=== PATIENT | male | born 1935 | race Caucasian/White ===

== ENCOUNTER 2022-04-11 04:23 | Day surgery (SDC) | payer OTHER ==
[2022-04-11] MEDS ORDERED: TOBRAMYCIN/DEXAMETHASONE OPHTH. OINTMENT 1 TUBE ONE (07:22)
[2022-04-11] MEDS ORDERED: BUPIVACAINE HCL/PF 0.75% 10 ML VIAL ONE (07:22)
[2022-04-11] MEDS ORDERED: LIDOCAINE HCL/PF 2% SDV 5ML VIAL ONE (07:22)
[2022-04-11] MEDS ORDERED: TRYPAN BLUE 0.5 ML DISP.SYRIN ONE (07:23)
[2022-04-11] MEDS ORDERED: LIDOCAINE HCL/PF 1% SDV 5ML VIAL ONE (07:23)
[2022-04-11] MEDS ORDERED: POVIDONE-IODINE 5% OPHTHALMIC PREP 30 ML SOLUTION ONE (07:23)
[2022-04-11] MEDS ORDERED: DICLOFENAC SODIUM 0.1% OPHTHALMIC 2.5ML BOTTLE OP SCH (07:30)
[2022-04-11] MEDS ORDERED: ACETAMINOPHEN 325 MG TABLET (FP) PO PRN (07:30)
[2022-04-11] MEDS ORDERED: CIPROFLOXACIN 0.3% EYE DROPS 5 ML BOTTLE ONE (09:53)
[2022-04-11] MEDS ORDERED: DICLOFENAC SODIUM 0.1% OPHTHALMIC 2.5ML BOTTLE ONE (09:53)
[2022-04-11] MEDS ORDERED: TROPICAMIDE 1% OPHTH SOLN 15 ML BOTTLE ONE (09:53)
[2022-04-11] MEDS ORDERED: PHENYLEPHRINE 2.5% OPTHALMIC DROP BOTTLE ONE (09:54)
[2022-04-11] MEDS: TROPICAMIDE 1% OPHTH SOLN 15 ML BOTTLE OP SCH ×3 (09:55→10:05)
[2022-04-11] MEDS: CIPROFLOXACIN HCL 0.3% OPHTH 2.5ML BOTTLE OP SCH ×3 (09:55→10:05)
[2022-04-11] MEDS: PHENYLEPHRINE 2.5% OPHTH SOLN 15 ML BOTTLE OP SCH ×3 (09:55→10:05)
[2022-04-11] MEDS ORDERED: TETRACAINE 0.5% OPHTH SOLN 2 ML BOTTLE OS ONE (12:13)
[2022-04-11] MEDS ORDERED: MIDAZOLAM HCL 2 MG/2 ML SINGLE DOSE VIAL ONE (12:14)
[2022-04-11] MEDS ORDERED: POVIDONE-IODINE 5% OPHTHALMIC PREP 30 ML SOLUTION OS ONE (12:16)
[2022-04-11] MEDS ORDERED: BSS (NA/CA/MG/K) BALANCED SALT SOLUTION OPHTH SOLN 15 ML BOTTLE IO ONE (12:21)
[2022-04-11] MEDS ORDERED: EPINEPHrine/PF 1 MG/1 ML (1:1,000) AMPULE ONE (12:21)
[2022-04-11] MEDS ORDERED: LIDOCAINE HCL 1% PRESERVATIVE FREE - 30ML VIAL IO ONE (12:23)
[2022-04-11] MEDS ORDERED: CHONDROITIN SU A/HYALUR SOD 1 KIT IO ONE (12:24)
[2022-04-11] MEDS ORDERED: EPINEPHrine 1:10,000 (P-F SYR) 1 MG/10 ML DISP.SYRIN IO ONE (12:24)
[2022-04-11] MEDS ORDERED: EPINEPHrine/PF 1 MG/1 ML (1:1,000) AMPULE SQ ONE (12:30)
[2022-04-11 14:09] VITALS: BP 106/70; PULSE 63; TEMP 98.7
== END 2022-04-11 13:55 | disposition home or self-care (01) ==
LOC: JASU-SURG 04:23
PROVIDERS: ATTEND Ophthalmology
PROC: 08RK3JZ Replacement of Left Lens with Synthetic Substitute, Percutaneous Approach (ICD-10-PCS; principal; 2022-04-11 11:30)
DX: H26.9 Unspecified cataract (principal)

== ENCOUNTER 2022-05-23 03:50 | Day surgery (SDC) | payer OTHER ==
[~2022-05-23 03:50] MED LIST: BSS (NA/CA/MG/K) BALANCED SALT SOLUTION OPHTH SOLN 15 ML BOTTLE IO ONE; POVIDONE-IODINE 5% OPHTHALMIC PREP 30 ML SOLUTION OD ONE; TETRACAINE 0.5% OPHTH SOLN 2 ML BOTTLE OD ONE; TOBRAMYCIN/DEXAMETHASONE OPHTH. OINTMENT 1 TUBE OD ONE
[2022-05-23] MEDS ORDERED: CIPROFLOXACIN 0.3% EYE DROPS 5 ML BOTTLE ONE (07:00)
[2022-05-23] MEDS ORDERED: DICLOFENAC SODIUM 0.1% OPHTHALMIC 2.5ML BOTTLE ONE (07:00)
[2022-05-23] MEDS ORDERED: PHENYLEPHRINE 2.5% OPTHALMIC DROP BOTTLE ONE (07:00)
[2022-05-23] MEDS ORDERED: TROPICAMIDE 1% OPHTH SOLN 15 ML BOTTLE ONE (07:00)
[2022-05-23] MEDS ORDERED: PHENYLEPHRINE 2.5% OPHTH SOLN 15 ML BOTTLE OD ONE ×2 (07:07→07:12)
[2022-05-23] MEDS ORDERED: CIPROFLOXACIN 0.3% EYE DROPS 5 ML BOTTLE OD ONE ×3 (07:07→07:17)
[2022-05-23] MEDS ORDERED: DICLOFENAC SODIUM 0.1% OPHTHALMIC 2.5ML BOTTLE OD ONE ×3 (07:07→07:17)
[2022-05-23] MEDS ORDERED: TROPICAMIDE 1% OPHTH SOLN 15 ML BOTTLE OD ONE ×3 (07:07→07:17)
[2022-05-23] MEDS ORDERED: BSS (NA/CA/MG/K) BALANCED SALT SOLUTION OPHTH SOLN 15 ML BOTTLE ONE (07:16)
[2022-05-23] MEDS ORDERED: POVIDONE-IODINE 5% OPHTHALMIC PREP 30 ML SOLUTION ONE (07:16)
[2022-05-23] MEDS ORDERED: EPINEPHrine/PF 1 MG/1 ML (1:1,000) AMPULE ONE ×2 (07:16→08:41)
[2022-05-23] MEDS ORDERED: TETRACAINE 0.5% OPHTH SOLN 2 ML BOTTLE ONE (07:16)
[2022-05-23] MEDS ORDERED: TOBRAMYCIN/DEXAMETHASONE OPHTH. OINTMENT 1 TUBE ONE (07:16)
[2022-05-23] MEDS ORDERED: LIDOCAINE HCL/PF 1% SDV 5ML VIAL ONE (07:16)
[2022-05-23] MEDS ORDERED: PHENYLEPHRINE 2.5% OPTHALMIC DROP BOTTLE OD ONE (07:17)
[2022-05-23] MEDS ORDERED: ACETAMINOPHEN 325 MG TABLET (FP) PO PRN (07:28)
[2022-05-23] MEDS ORDERED: TROPICAMIDE 1% OPHTH SOLN 15 ML BOTTLE OP SCH (07:30)
[2022-05-23] MEDS ORDERED: PHENYLEPHRINE 2.5% OPHTH SOLN 15 ML BOTTLE OP SCH (07:30)
[2022-05-23] MEDS ORDERED: CIPROFLOXACIN HCL 0.3% OPHTH 2.5ML BOTTLE OP SCH (07:30)
[2022-05-23] MEDS ORDERED: DICLOFENAC SODIUM 0.1% OPHTHALMIC 2.5ML BOTTLE OP SCH (07:30)
[2022-05-23] MEDS ORDERED: MIDAZOLAM HCL 2 MG/2 ML SINGLE DOSE VIAL ONE (08:23)
[2022-05-23] MEDS ORDERED: TETRACAINE 0.5% OPHTH SOLN 2 ML BOTTLE TP ONE (08:33)
[2022-05-23] MEDS ORDERED: TETRACAINE 0.5% OPHTH SOLN 2 ML BOTTLE OD ONE ×2 (08:33)
[2022-05-23] MEDS ORDERED: POVIDONE-IODINE 5% OPHTHALMIC PREP 30 ML SOLUTION OD ONE ×2 (08:34)
[2022-05-23] MEDS ORDERED: BSS (NA/CA/MG/K) BALANCED SALT SOLUTION OPHTH SOLN 15 ML BOTTLE IO ONE (08:41)
[2022-05-23] MEDS ORDERED: BSS (NA/CA/MG/K) BALANCED SALT SOLUTION OPHTH SOLN 15 ML BOTTLE OD ONE (08:41)
[2022-05-23] MEDS ORDERED: CHONDROITIN SU A/HYALUR SOD 1 KIT IO ONE (08:42)
[2022-05-23] MEDS ORDERED: LIDOCAINE HCL 1% PRESERVATIVE FREE - 30ML VIAL IO ONE ×2 (08:42)
[2022-05-23] MEDS ORDERED: EPINEPHrine/PF 1 MG/1 ML (1:1,000) AMPULE SQ ONE ×2 (08:43→08:49)
[2022-05-23] MEDS ORDERED: TOBRAMYCIN/DEXAMETHASONE OPHTH. OINTMENT 1 TUBE TP ONE (09:02)
[2022-05-23] MEDS ORDERED: TOBRAMYCIN/DEXAMETHASONE OPHTH. OINTMENT 1 TUBE OD ONE (09:02)
[2022-05-23 09:24] VITALS: BP 133/65; PULSE 84; RESP 18; TEMP 97.7
== END 2022-05-23 09:57 | disposition home or self-care (01) ==
LOC: JASU-SURG 03:50
PROVIDERS: ATTEND Ophthalmology
PROC: 08RJ3JZ Replacement of Right Lens with Synthetic Substitute, Percutaneous Approach (ICD-10-PCS; principal; 2022-05-23 08:30)
DX: H25.11 Age-related nuclear cataract, right eye (principal)

== ENCOUNTER 2022-10-03 02:06 | Emergency (ER) | payer OTHER ==
[2022-10-03] MEDS ORDERED: ASPIRIN 325 MG TABLET PO ONE (02:45)
[2022-10-03] MEDS ORDERED: ACETAMINOPHEN 1000 MG/100 ML BAG IVPB ONE (02:45)
[2022-10-03] MEDS ORDERED: ACETAMINOPHEN INJECTION 100 ML IVPB ONE (03:20)
[2022-10-03] MEDS ORDERED: ASPIRIN 81 MG CHEWABLE TABLETS ONE (03:20)
[2022-10-03 03:33] VITALS: BMI 30.9
[2022-10-03 03:45] LABS: VENOUS BASE EXCESS -2.8 mmol/L (-2-2); VENOUS O2 SATURATION 91.7 % (70-80); VENOUS PCO2 29.4 mmHg (38-52); VENOUS PH 7.447 (7.310-7.410)
[2022-10-03 03:53] LABS: INR 1.2 (0.83-1.09); PROTHROMBIN TIME (PATIENT) 13.8 SEC (9.7-13.0)
[2022-10-03 03:56] LABS: ACTIVATED PTT 41.5 SECONDS (25.2-36.5)
[2022-10-03 04:05] LABS: CHLORIDE 95 mmol/L (98-107); SODIUM 126 mmol/L (136-145)
[2022-10-03] MEDS ORDERED: SODIUM CHLORIDE 0.9% 500 ML INFUS.BAG IV ONE (04:06)
[2022-10-03 04:07] LABS: CALCIUM 8.6 mg/dL (8.5-10.1)
[2022-10-03 04:08] LABS: ALBUMIN 3.7 g/dl (3.4-5.0); BLOOD UREA NITROGEN 35.4 mg/dL (7-18); CO2 21 mmol/L (21-32); GLUCOSE,RANDOM 295 mg/dL (74-106)
[2022-10-03 04:11] LABS: CREATININE 1.2 mg/dL (0.55-1.3); SGOT/AST 70 U/L (15-37); SGPT/ALT 52 U/L (13-61)
[2022-10-03 04:12] LABS: TOT PROT 8.3 g/dl (6.4-8.2)
[2022-10-03 04:13] LABS: BILIRUBIN,TOTAL 0.4 mg/dL (0.2-1)
[2022-10-03 04:14] LABS: ALK PHOS 141 U/L (45-117)
[2022-10-03 04:16] LABS: N-TERMINAL BNP 2393.3 pg/ml (5-450)
[2022-10-03] MEDS ORDERED: FUROSEMIDE 40 MG/4 ML INJECTABLE VIAL IVPUSH ONE (04:28)
[2022-10-03] MEDS ORDERED: morphine CARPU-JECT 4 MG/1 ML DISP.SYRIN IVPUSH ONE (04:36)
[2022-10-03 04:49] LABS: BASO % 0.3 % (0-2.0); HEMATOCRIT 42.1 % (35.4-49); LYMPH % 11.7 % (8-40); MCH 24.6 pg (25.7-33.7); MCHC 33.2 g/dl (32.0-35.9); MEAN CELL VOLUME 74.1 fl (80-96); MEAN PLT VOLUME 9.8 fl (7.5-11.1); PLATELET COUNT 243 10^3/uL (134-434); RBC 5.67 M/mm3 (4.00-5.60); RDW 20.6 % (11.9-15.9); WHITE BLOOD COUNT 11.4 K/mm3 (4.0-10.0)
[2022-10-03] MEDS ORDERED: FUROSEMIDE 40 MG/4 ML INJECTABLE VIAL ONE (05:04)
[2022-10-03] MEDS ORDERED: morphine SULFATE 4 MG/ML VIAL ONE (05:04)
[2022-10-03 05:16] LABS: ANION GAP 10 MMOL/L (8-16)
[2022-10-03] MEDS ORDERED: ENOXAPARIN NA (PORCINE) 80 MG/0.8 ML DISP.SYRIN SQ ONE ×2 (05:18→06:11)
[2022-10-03] MEDS ORDERED: CLOPIDOGREL BISULFATE 300 MG TABLET PO ONE (05:18)
[2022-10-03] MEDS ORDERED: ATORVASTATIN CA 80 MG TABLET (FP) PO ONE (05:32)
[2022-10-03] MEDS ORDERED: PANTOPRAZOLE SODIUM 40 MG VIAL IVPUSH ONE (05:32)
[2022-10-03] MEDS ORDERED: PANTOPRAZOLE SODIUM 40 MG/100 ML BAG IVPB ONE (06:11)
[2022-10-03] MEDS ORDERED: ATORVASTATIN CA 80 MG TABLET (FP) ONE (06:11)
[2022-10-03 07:21] LABS: ANION GAP 14 MMOL/L (8-16); BLOOD UREA NITROGEN 34.9 mg/dL (7-18); CALCIUM 8.8 mg/dL (8.5-10.1); CHLORIDE 91 mmol/L (98-107); CO2 23 mmol/L (21-32); GLUCOSE,RANDOM 291 mg/dL (74-106); SODIUM 128 mmol/L (136-145)
[2022-10-03 07:25] LABS: CREATININE 1.6 mg/dL (0.55-1.3)
[2022-10-03 07:29] LABS: N-TERMINAL BNP 4133.2 pg/ml (5-450)
[2022-10-03 08:25] VITALS: BP 146/80; PULSE 77; RESP 22; TEMP 97.9
[2022-10-03 08:55] LABS: ANISOCYTOSIS 2+; MACROCYTOSIS 1+; OVALOCYTE 1+
== END 2022-10-03 09:04 | disposition short-term general hospital (02) ==
LOC: JER 02:06 → JERBED 04:52 → UNDOADMIN 04:52
PROC: 3E023GC Introduction of Other Therapeutic Substance into Muscle, Percutaneous Approach (ICD-10-PCS; principal; 2022-10-03)
PROC: 3E033GC Introduction of Other Therapeutic Substance into Peripheral Vein, Percutaneous Approach (ICD-10-PCS; principal; 2022-10-03)
DX: J18.9 Pneumonia, unspecified organism (principal); I50.9 Heart failure, unspecified; E87.1 Hypo-osmolality and hyponatremia
CPT/HCPCS: 0241U-QW; 36415; 71045-TC-FY; 80048; 80053; 82010; 82803; 82962; 83880; 84484; 85025; 85610; 85730; 93005; 93010; 99285-25